=== PATIENT | female | born 1955 | race African-American/Black ===

== ENCOUNTER 2021-03-13 05:37 | Day surgery (SDC) | payer MEDICARE, MEDICAID ==
[2021-03-09 14:31] LABS: BASOPHILS % (AUTO) 0.2 % (0-1); EOSINOPHILS % (AUTO) 0 % (0-6); LYMPHOCYTES # (AUTO) 1.3 X10'3 (1.1-4.8); LYMPHOCYTES % (AUTO) 25.1 % (21-51); MEAN CORPUSCULAR HEMOGLOBIN 30.8 PG (27.0-31.0); MEAN CORPUSCULAR HGB CONC 33.6 g/dL (33.0-36.5); MEAN CORPUSCULAR VOLUME 91.8 FL (78-98); MEAN PLATELET VOLUME 7.1 FL (7.4-10.4); MONOCYTES # (AUTO) 0.4 X10'3 (0-0.9); MONOCYTES % (AUTO) 8.6 % (2-12); NEUTROPHILS # (AUTO) 3.4 X10'3 (1.8-7.7); NEUTROPHILS % (AUTO) 66.1 % (42-75); PRE OP HEMATOCRIT 39.8 % (35.0-45.0); PRE OP HEMOGLOBIN 13.4 g/dL (12.0-16.0); PRE OP PLATELET COUNT 242 X10'3 (140-440); RED BLOOD COUNT 4.33 X10'6 (4.20-5.60); RED CELL DISTRIBUTION WIDTH 13.5 % (11.5-14.5)
[2021-03-09 14:39] LABS: CLARITY,URINE CLOUDY (Clear); COLOR,URINE YELLOW (Yellow); GLUCOSE, URINE NEGATIVE (Neg); KETONES,URINE TRACE mg/dl (Neg); LEUKOCYTE ESTERASE ,URINE NEGATIVE (Neg); NITRITES, URINE NEGATIVE (Neg); OCCULT BLOOD,URINE NEGATIVE (Neg); PROTEIN,URINE NEGATIVE (Neg); UROBILINOGEN,URINE 0.2 E.U/dL (0.2-1.0)
[2021-03-09 14:40] LABS: UA COLLECTION TYPE CLN CATCH MIDSTREAM
[2021-03-09 14:46] LABS: MUCUS STRANDS MANY /LPF (Neg); SQUAMOUS EPITHELIAL CELL,UR MODERATE /LPF (FEW)
[2021-03-09 14:49] LABS: RBC,URINE 0-2 /HPF (0-2)
[2021-03-09 14:50] LABS: BACTERIA,URINE NONE SEEN /HPF (Neg); STARCH,URINE MANY /HPF (NEGATIVE)
[2021-03-09 14:51] LABS: ALBUMIN 3.3 G/DL (3.4-5.0); ALBUMIN/GLOBULIN RATIO 0.9 (1.1-1.5); ALKALINE PHOSPHATASE 76 IU/L (46-116); BLOOD UREA NITROGEN 20 MG/DL (7-18); BUN/CREATININE RATIO 13.4 (6.6-38.0); CALCIUM 8.7 MG/DL (8.5-10.1); CHLORIDE 110 MMOL/L (99-107); CREATININE 1.49 MG/DL (0.40-0.90); PRE OP ALT 30 U/L (30-65); PRE OP ANION GAP 6 (8-16); PRE OP AST 18 U/L (10-37); PRE OP BILIRUB, TOTAL 0.4 MG/DL (0.0-1.0); PRE OP GLUCOSE 94 MG/DL (70-104); PRE OP POTASSIUM 3.7 MMOL/L (3.4-5.1); PRE OP SODIUM 147 MMOL/L (135-145); TOTAL CARBON DIOXIDE 30.6 MMOL/L (24-32); TOTAL PROTEIN 7.1 G/DL (6.4-8.2); eGFR 42 ML/MIN
[~2021-03-13] VITALS: Ht 165.1 cm; Wt 91.7 kg
[2021-03-13] VITALS (10 sets, daily range): BP systolic 132–146; BP diastolic 80–89
[~2021-03-13 05:37] MED LIST: ASPI81TA30 PO; ATOR10TA PO; BUPR300T53 PO; BUSP30TA3 PO; ESCI20TA PO; FA/M1TAB PO; GABA-530 PO; HYDR25TA4 PO; LACT1CAP75 PO; LISI20TA28 PO; TRAZ-256 PO; VIT D3 PO; cefazolin/dext.iso 2gm/50ml IV ONE; famotidine 20mg tablet PO ONE; ringers solution, lacted 1,000 ML IV SCH
[2021-03-13] MEDS ORDERED: BUPIVAcaine/PF 2.5mg/ml (0.25%) 10ml vial ONE ×2 (06:46→07:35)
[2021-03-13] MEDS ORDERED: bacitracin 15gm ointment TP ONE (06:47)
[2021-03-13] MEDS ORDERED: fentaNYL/PF 50MCG/1 ML 2ML syringe ONE (07:05)
[2021-03-13] MEDS ORDERED: midazolam 1 mg/ML 2ml injection ONE (07:06)
[2021-03-13] MEDS ORDERED: propofol inj 20 ML IV ONE (07:07)
[2021-03-13] MEDS ORDERED: morphine 4 MG/ML inj SYRINge IV PRN (07:10)
[2021-03-13] MEDS ORDERED: proCHLORperazine 10 MG/2 ml inj IV PRN (07:10)
[2021-03-13] MEDS ORDERED: ringers solution, lacted 1,000 ML IV SCH (07:10)
[2021-03-13] MEDS ORDERED: ondansetron/PF 4mg/2ml inj IV PRN (07:10)
[2021-03-13] MEDS ORDERED: morphine 2 MG/ML inj. syringe IV PRN (07:10)
[2021-03-13] MEDS ORDERED: meperidine/PF 25mg/ml syringe IV PRN ×3 (07:10)
[2021-03-13] MEDS ORDERED: ondansetron/PF 4mg/2ml inj ONE (08:29)
[2021-03-13] MEDS ORDERED: dexamethasone sod phosphate 4mg/ml inj. ONE (08:29)
--- NOTE | 2021-03-13 08:38 | NUR ---
Received from OR via [facility] , accompanied by Anesthesiologist CISCO and report given by Anesthesiolgist. LEFT FOOT WITH BOOT ON AND EXPOSED PINS TO TOES. PATIENT TOES SLIGHTLY DUSKY BUT WITH + CAP REFILL AND ARE WARM TO TOUCH. 18G PIV IN RIGHT HAND RUNNING LR AT 100. ELEVATED AND GATCHED FOOT OF BED UPON ARRIVAL. 10L MASK ON WITH 97% SATURATIONS. WILL CONTINUE TO ASSESS. Addendum: 03/13/21 at 0911 by Fabricio Sharp RN, RN Amended: Links added.
--- NOTE | 2021-03-13 09:57 | NUR ---
PT HERE FOR WALKER NON WEIGHT BEARING TRAINING. NO PAIN, VSS, IV PATENT.
--- NOTE | 2021-03-13 10:25 | NUR ---
AWAITING FRONT WHEEL WALKER. AND WHEELCHAIR RENTAL. APPROXIMATE WAIT TIME 2 HOURS. IHSS WORKER AT SIDE VISITING. TOLERATING APPLE JUICE. IV SALINE LOCKED. WILL SENT PT TO PAS TO WAIT AND BE DC FROM. PT TRAINING COMPLETE.
--- NOTE | 2021-03-13 10:36 | NUR ---
TO PAS UNIT. REPORT TO EDUARDO ESTRELLA. NO PAIN, VSS.TOLERATING APPLE JUICE. DSG CDI, TOES PINK, JESU WELL.
--- NOTE | 2021-03-13 12:30 | NUR ---
PT HAS BEEN RESTING QUIETLY, VSS, FOOT ELEVATED WITH GOOD CSM, ABLE TO EAT LUNCH AND AMBULATE TO THE BATHROOM WITH A WALKER, PIV D/CD-CANULA INTACT, INFORMED BY CASE MGMT THAT INS WILL NOT COVER WALKER OR W/C FOR PT. WAS ABLE TO OBTAIN FREE WALKER FROM [facility] AND PT WILL RENT W/C FROM EVERYTHING MEDICAL-DIRECTOR [employer] AGREED TO OBTAIN DME FROM THOSE LOCATIONS ON WAY HOME WITH PT. - BOTH EDUCATED REGARDING WHERE AND HOW TO USE/OBTAIN EQUIPMENT, PT GIVEN 1 NORCO FOR PAIN BLOCK WAS BEGINNING TO WEAR OFF, PT TAKEN VIA W/C WITH ALL BELONGINGS TO [facility] WORKERS CAR.
[2021-03-13] MEDS ORDERED: HYDROcodone/acetaminophen 10/325mg tab PO STA (12:43)
== END 2021-03-13 12:38 | disposition home or self-care (01) ==
LOC: PAS 05:37
PROVIDERS: ATTEND Podiatrist Foot & Ankle Surgery
DX: M77.42 Metatarsalgia, left foot (principal); M20.5X2 Other deformities of toe(s) (acquired), left foot; M19.072 Primary osteoarthritis, left ankle and foot; G62.9 Polyneuropathy, unspecified; I12.9 Hypertensive chronic kidney disease with stage 1 through stage 4 chronic kidney disease, or unspecified chronic kidney disease; N18.9 Chronic kidney disease, unspecified; F31.9 Bipolar disorder, unspecified; E78.5 Hyperlipidemia, unspecified; E66.01 Morbid (severe) obesity due to excess calories; Z68.36 Body mass index [BMI] 36.0-36.9, adult; M17.0 Bilateral primary osteoarthritis of knee; Z20.822 Contact with and (suspected) exposure to COVID-19; Z87.891 Personal history of nicotine dependence; Z88.2 Allergy status to sulfonamides; Z98.890 Other specified postprocedural states; Z79.899 Other long term (current) drug therapy
CPT/HCPCS: 28112; 28298; 36415; 73620; 76000; 80053; 81001; 82948; 85025; 87088; 93005; 97116; 97162; 97530; A6223; C1713; J0690; J1100; J2250; J2405; J2704; J3010; J3490; J7030; J7120; U0003; U0005; Z7506; Z7508; Z7512; A4618; A6449; A7000

== ENCOUNTER 2022-10-04 12:21 | Observation (INO) | payer MEDICARE, MEDICAID ==
[~2022-10-04] VITALS: Ht 162.6 cm; Wt 89.5 kg
[~2022-10-04 12:21] MED LIST changes: -cefazolin/dext.iso 2gm/50ml IV ONE; -famotidine 20mg tablet PO ONE; -ringers solution, lacted 1,000 ML IV SCH
[2022-10-04 12:52] LABS: BASOPHILS % (AUTO) 0.5 % (0-1); EOSINOPHILS % (AUTO) 0.7 % (0-6); HEMATOCRIT 42.3 % (35.0-45.0); HEMOGLOBIN 13.9 g/dl (12.0-16.0); LYMPHOCYTES # (AUTO) 1.5 X10'3 (1.1-4.8); LYMPHOCYTES % (AUTO) 38.4 % (21-51); MEAN CORPUSCULAR HEMOGLOBIN 30.3 PG (27.0-31.0); MEAN CORPUSCULAR HGB CONC 32.9 g/dL (33.0-36.5); MEAN CORPUSCULAR VOLUME 92.1 FL (78-98); MEAN PLATELET VOLUME 6.8 FL (7.4-10.4); MONOCYTES # (AUTO) 0.4 X10'3 (0-0.9); MONOCYTES % (AUTO) 10.1 % (2-12); NEUTROPHILS # (AUTO) 1.9 X10'3 (1.8-7.7); NEUTROPHILS % (AUTO) 50.3 % (42-75); PLATELET COUNT 247 X10'3 (140-440); RED BLOOD COUNT 4.59 X10'6 (4.20-5.60); RED CELL DISTRIBUTION WIDTH 13.6 % (11.5-14.5); WHITE BLOOD COUNT 3.9 X10'3 (4.5-11.0)
[2022-10-04] MEDS ORDERED: aspirin 81mg tab.chew PO ONE (12:55)
[2022-10-04 13:09] LABS: ALANINE AMINOTRANSFERASE 30 U/L (12-78); ALBUMIN 3.5 G/DL (3.4-5.0); ALKALINE PHOSPHATASE 70 IU/L (46-116); ANION GAP 9 (8-16); ASPARTATE AMINO TRANSFERASE 22 U/L (10-37); BILIRUBIN,TOTAL 0.5 MG/DL (0.1-1.0); BLOOD UREA NITROGEN 17 MG/DL (7-18); BUN/CREATININE RATIO 13.5 (10.0-20.0); CALCIUM 8.9 MG/DL (8.5-10.1); CHLORIDE 108 MMOL/L (99-107); CREATININE 1.26 MG/DL (0.40-0.90); GLUCOSE 91 MG/DL (70-104); POTASSIUM 3.8 MMOL/L (3.5-5.1); SODIUM 142 MMOL/L (135-145); TOTAL CARBON DIOXIDE 25.1 MMOL/L (24-32); eGFR 51 ML/MIN
[2022-10-04] MEDS ORDERED: nitroGLYCERIN 0.4mg SUBLingual tab SL PRN ×2 (13:10→18:10)
[2022-10-04 13:31] LABS: D-DIMER 0.22 MG/L FEU (0-0.50)
[2022-10-04] MEDS ORDERED: magnesium 2GM in 50ml NS 50 ML IV PRN (14:00)
[2022-10-04] MEDS ORDERED: magnesium Cl slow-release 64mg tablet PO PRN (14:00)
[2022-10-04] MEDS ORDERED: potassium Cl 20 mEq SR tablet PO PRN ×2 (14:00)
[2022-10-04] MEDS ORDERED: morphine 2 MG/ML inj. syringe IV PRN (14:00)
[2022-10-04] MEDS ORDERED: magnesium 4gm in 100ml NS 100 ML IV PRN (14:00)
[2022-10-04] MEDS ORDERED: acetaminophen 325mg tablet PO PRN (14:00)
[2022-10-04] MEDS ORDERED: PERFLUTREN PROTEIN-A MICROSPHR (Optison) 0.22 MG/ML 3ML VIAL IV ONE (14:00)
[2022-10-04] MEDS ORDERED: ondansetron/PF 4mg/2ml inj IV PRN (14:00)
[2022-10-04] MEDS ORDERED: potassium Cl 40MEQ/1/2NS 520ml 520 ML IV PRN (14:00)
[2022-10-04] MEDS ORDERED: normal saline 1000ml 1,000 ML IV SCH (14:00)
[2022-10-04] MEDS ORDERED: PALI6TAB6 PO (14:48)
[2022-10-04] MEDS ORDERED: BUPR300T86 PO (14:48)
[2022-10-04] MEDS ORDERED: BUPR-317 PO (14:48)
[2022-10-04] MEDS ORDERED: [UNRECOGNIZED DRUG - CODE] PO (14:48)
[2022-10-04] MEDS ORDERED: regadenoson 0.4mg/5ml syringe IV PRN (18:10)
[2022-10-04] MEDS ORDERED: metoprolol tartrate 1mg/ml inj IV PRN (18:10)
[2022-10-04] MEDS ORDERED: aminophylline 250mg/10ml inj. IV PRN (18:10)
--- NOTE | 2022-10-04 19:30 | NUR ---
Patient in room PCU 3024. I have received report from Carl PRINGLE RN and had the opportunity to ask questions and assume patient care.
--- NOTE | 2022-10-04 19:39 | NUR ---
report called to floor rn pt tx to room 3024 by tech
[2022-10-04 20:00] VITALS: BP 117/63
[2022-10-04] MEDS: docusate sod 100mg capsule PO SCH (20:00)
[2022-10-04] MEDS: K and/or MAG REPLACEMENT MC SCH (20:00)
--- NOTE | 2022-10-04 20:00 | NUR ---
PT ARRIVED ON THE UNIT FROM ED, NO DISTRESS, WANTED TO EAT HER FOOD FIRST. VITALS WNL AND PT SITTING COMFORTABLY
[2022-10-05] VITALS (11 sets, daily range): BP systolic 119–154; BP diastolic 71–90
[2022-10-05] MEDS ORDERED: PERFLUTREN PROTEIN-A MICROSPHR (Optison) 0.22 MG/ML 3ML VIAL IV ONE (05:30)
[2022-10-05 06:20] LABS: BASOPHILS % (AUTO) 0.3 % (0-1); EOSINOPHILS % (AUTO) 0.7 % (0-6); HEMATOCRIT 40.7 % (35.0-45.0); HEMOGLOBIN 13.5 g/dl (12.0-16.0); LYMPHOCYTES # (AUTO) 1.4 X10'3 (1.1-4.8); MEAN CORPUSCULAR HEMOGLOBIN 30.8 PG (27.0-31.0); MEAN CORPUSCULAR HGB CONC 33.3 g/dL (33.0-36.5); MEAN CORPUSCULAR VOLUME 92.5 FL (78-98); MEAN PLATELET VOLUME 6.9 FL (7.4-10.4); MONOCYTES # (AUTO) 0.4 X10'3 (0-0.9); MONOCYTES % (AUTO) 10.4 % (2-12); NEUTROPHILS # (AUTO) 1.7 X10'3 (1.8-7.7); NEUTROPHILS % (AUTO) 48.6 % (42-75); PLATELET COUNT 234 X10'3 (140-440); RED CELL DISTRIBUTION WIDTH 13.7 % (11.5-14.5); WHITE BLOOD COUNT 3.6 X10'3 (4.5-11.0)
[2022-10-05 06:36] LABS: ALBUMIN 3.1 G/DL (3.4-5.0); ANION GAP 7 (8-16); BLOOD UREA NITROGEN 15 MG/DL (7-18); CALCIUM 8.6 MG/DL (8.5-10.1); CHLORIDE 110 MMOL/L (99-107); CREATININE 1.36 MG/DL (0.40-0.90); GLUCOSE 95 MG/DL (70-104); MAGNESIUM 2.2 MG/DL (1.5-2.4); POTASSIUM 4.2 MMOL/L (3.5-5.1); SODIUM 145 MMOL/L (135-145); TOTAL CARBON DIOXIDE 28.2 MMOL/L (24-32); eGFR 47 ML/MIN
--- NOTE | 2022-10-05 06:39 | NUR ---
Problems reprioritized. Patient report given, questions answered & plan of care reviewed with Selene ESTRELLA.
[2022-10-05] MEDS: K and/or MAG REPLACEMENT MC SCH (08:00)
[2022-10-05] MEDS: docusate sod 100mg capsule PO SCH (08:00)
--- NOTE | 2022-10-05 11:49 | NUR ---
promotional table spacer promotional table spacer Page Sent promotional table spacer PAGER ID: [phone] MESSAGE: AMOR ON [email or web address], [facility] REPORT IS AVAILABLE ON 3024B, THX. (58 character message out of a maximum of 240) CLOSE [X] SEND ANOTHER PAGE Thank you for visiting [facility] promotional table spacer promotional table spacer
[2022-10-05] MEDS ORDERED: LISI40TA13 PO (13:55)
--- NOTE | 2022-10-05 17:33 | NUR ---
DISCHARGE NOTE: Reviewed discharge paperwork with pt. She is aware of her medication change and will be monitoring her BP closely and plans to f/u with her PCP. PIV Dc'd, cannula intact, pressure bandage applied. Pt. left with her [facility] worker and all of her belongings.
== END 2022-10-05 15:43 | disposition home or self-care (01) ==
LOC: ER 12:21 → ED HOLD 14:05 → PCU 3S 20:00
PROVIDERS: ADMIT Internal Medicine; ATTEND Internal Medicine
DX: I20.0 Unstable angina (principal); I10 Essential (primary) hypertension; E11.9 Type 2 diabetes mellitus without complications; E78.5 Hyperlipidemia, unspecified; F41.8 Other specified anxiety disorders; E78.00 Pure hypercholesterolemia, unspecified; Z90.710 Acquired absence of both cervix and uterus; Z79.899 Other long term (current) drug therapy
CPT/HCPCS: 36415; 71045; 78452; 80048; 80053; 83735; 83880; 84484; 85025; 85379; 87081; 93005; 93017; 93306; 93971; 96360; 96361; 99285; A9500; G0378; J2785; J7030

== ENCOUNTER 2023-01-21 05:41 | Day surgery (SDC) | payer MEDICARE, MEDICAID ==
[2023-01-17 12:09] LABS: BASOPHILS % (AUTO) 0.5 % (0-1); EOSINOPHILS # (AUTO) 0.1 X10'3 (0-0.9); EOSINOPHILS % (AUTO) 3.4 % (0-6); LYMPHOCYTES # (AUTO) 1.3 X10'3 (1.1-4.8); LYMPHOCYTES % (AUTO) 33.7 % (21-51); MEAN CORPUSCULAR HEMOGLOBIN 30.4 PG (27.0-31.0); MEAN CORPUSCULAR VOLUME 92.1 FL (78-98); MEAN PLATELET VOLUME 7.1 FL (7.4-10.4); MONOCYTES # (AUTO) 0.4 X10'3 (0-0.9); MONOCYTES % (AUTO) 10.9 % (2-12); NEUTROPHILS % (AUTO) 51.5 % (42-75); PRE OP HEMATOCRIT 40.8 % (35.0-45.0); PRE OP HEMOGLOBIN 13.5 g/dL (12.0-16.0); PRE OP PLATELET COUNT 260 X10'3 (140-440); PRE OP WHITE BLOOD COUNT 3.8 10'3 (4.8-10.8); RED BLOOD COUNT 4.43 X10'6 (4.20-5.60); RED CELL DISTRIBUTION WIDTH 13.3 % (11.5-14.5)
[2023-01-17 12:22] LABS: ALBUMIN 3.4 G/DL (3.4-5.0); ALBUMIN/GLOBULIN RATIO 0.9 (1.1-1.5); ALKALINE PHOSPHATASE 79 IU/L (46-116); BLOOD UREA NITROGEN 18 MG/DL (7-18); BUN/CREATININE RATIO 15.7 (10.0-20.0); CALCIUM 9.3 MG/DL (8.5-10.1); CHLORIDE 106 MMOL/L (99-107); CREATININE 1.15 MG/DL (0.40-0.90); PRE OP ALT 36 U/L (30-65); PRE OP ANION GAP 6 (8-16); PRE OP AST 23 U/L (10-37); PRE OP BILIRUB, TOTAL 0.5 MG/DL (0.0-1.0); PRE OP GLUCOSE 80 MG/DL (70-104); PRE OP POTASSIUM 3.8 MMOL/L (3.4-5.1); PRE OP SODIUM 142 MMOL/L (135-145); TOTAL CARBON DIOXIDE 29.6 MMOL/L (24-32); TOTAL PROTEIN 7.3 G/DL (6.4-8.2); eGFR 57 ML/MIN
[~2023-01-21] VITALS: Ht 162.6 cm; Wt 90.0 kg
[2023-01-21] VITALS (7 sets, daily range): BP systolic 104–136; BP diastolic 62–87; PULSE 78–85; RESP 13–17; TEMP 97; O2SAT 95–99
[~2023-01-21 05:41] MED LIST changes: -ASPI81TA30 PO; +ASPI81TA52 PO; -BUPR300T53 PO; -FA/M1TAB PO; -GABA-530 PO; +GABA300C PO; -LACT1CAP75 PO; -LISI20TA28 PO; +LISI40TA13 PO; -TRAZ-256 PO; -VIT D3 PO; +[UNRECOGNIZED DRUG - CODE] PO; +cefazolin 2gm/D5W 100mL 100 ML IV ONE; +famotidine 20mg tablet PO ONE; +ringers solution, lacted 1,000 ML IV SCH
[2023-01-21] MEDS ORDERED: BUPIVAcaine/PF 2.5mg/ml (0.25%) 10ml vial ONE (06:43)
[2023-01-21] MEDS ORDERED: propofol 10mg/ml 20ml vial IV ONE (08:01)
[2023-01-21] MEDS ORDERED: midazolam 1 mg/ML 2ml injection ONE (08:03)
[2023-01-21] MEDS ORDERED: fentaNYL/PF 50MCG/1 ML 2ML syringe ONE (08:03)
[2023-01-21] MEDS ORDERED: LIDOcaine 2% (20mg/ml) 5ml vial SQ ONE (08:14)
--- NOTE | 2023-01-21 08:24 | NUR ---
Received from OR via [facility], accompanied by Anesthesiologist CISCO and report given by Anesthesiolgist. PATIENT WTIH 20G PIV IN RIGHT UE RUNNING LR AT 100. PATIENT WITH BIAS DRESSING TO LEFT UE RUNNING LR AT 100. DENIES PAIN. + CAP REFILL TO FINGERS AND THUMB TO LEFT HAND. Addendum: 01/21/23 at 0831 by Fabricio Sharp RN, RN Amended: Links added.
[2023-01-21] MEDS ORDERED: meperidine/PF 25mg/ml syringe IV PRN ×3 (08:30)
[2023-01-21] MEDS ORDERED: morphine 4 MG/ML inj SYRINge IV PRN (08:30)
[2023-01-21] MEDS ORDERED: ondansetron/PF 4mg/2ml inj IV PRN (08:30)
[2023-01-21] MEDS ORDERED: ringers solution, lacted 1,000 ML IV SCH (08:30)
[2023-01-21] MEDS ORDERED: morphine 2 MG/ML inj. syringe IV PRN (08:30)
[2023-01-21] MEDS ORDERED: proCHLORperazine 10 MG/2 ml inj IV PRN (08:30)
--- NOTE | 2023-01-21 09:04 | NUR ---
ABLE TO SAFELY AMBULATE AND TRANSFER SELF. IV TAKEN OUT WITHOUT ANY COMPLICATIONS. ALL DISCHARGE INSTRUCTIONS COVERED WITH PATIENT AND ALL QUESTIONS ANSWERED. PATIENT TAKEN OUT VIA WHEELCHAIR TO PERSONAL VEHICLE WHERE FAMILY/FRIEND DROVE PATIENT HOME. STATISTICAL METHODS PROFESSOR ANNITA GIVEN ALL DC INSTRUCTIONS WELL AND PATIENT SENT HOME VIA PERSONAL VEHICLE WITH ANNITA DRIVING. Addendum: 01/21/23 at 0921 by Fabricio Sharp RN, RN Amended: Links added.
== END 2023-01-21 09:04 | disposition home or self-care (01) ==
LOC: PAS 05:41
PROVIDERS: ATTEND Orthopaedic Surgery Hand Surgery
DX: G56.02 Carpal tunnel syndrome, left upper limb (principal); I12.9 Hypertensive chronic kidney disease with stage 1 through stage 4 chronic kidney disease, or unspecified chronic kidney disease; E11.22 Type 2 diabetes mellitus with diabetic chronic kidney disease; N18.9 Chronic kidney disease, unspecified; E78.5 Hyperlipidemia, unspecified; G47.33 Obstructive sleep apnea (adult) (pediatric); F41.9 Anxiety disorder, unspecified; F32.A Depression, unspecified; G43.909 Migraine, unspecified, not intractable, without status migrainosus; M81.0 Age-related osteoporosis without current pathological fracture; G62.9 Polyneuropathy, unspecified; M19.90 Unspecified osteoarthritis, unspecified site; Z87.891 Personal history of nicotine dependence; Z79.82 Long term (current) use of aspirin; Z79.899 Other long term (current) drug therapy; Z90.710 Acquired absence of both cervix and uterus; Z98.890 Other specified postprocedural states; Z88.2 Allergy status to sulfonamides; Z82.49 Family history of ischemic heart disease and other diseases of the circulatory system
CPT/HCPCS: 36415; 64721; 80053; 82948; 85025; J0690; J2250; J2704; J3010; J3490; J7030; J7120; Z7506; Z7512; A4215